=== PATIENT | female | born 1980 | race Caucasian/White ===

== ENCOUNTER 2018-07-01 15:06 | Emergency (ER) | payer OTHER ==
[~2018-07-01] VITALS: Ht 170.2 cm; Wt 107.0 kg
[2018-07-01] MEDS ORDERED: WELLBUTRIN 75 M75 M1 PO (15:20)
[2018-07-01] MEDS ORDERED: VITAMIN D1000 UNI1 PO (15:20)
[2018-07-01] MEDS ORDERED: BIRTHCONTROL PO (15:21)
[2018-07-01] MEDS ORDERED: BUTALB-APAP-CA1 EACH PO (16:25)
[2018-07-01 16:39] VITALS: BP 145/76
== END 2018-07-01 16:38 | disposition home or self-care (01) ==
LOC: M.ERS 15:06
DX: R51 Headache (principal); Z88.8 Allergy status to other drugs, medicaments and biological substances